=== PATIENT | male | born 1980 | race Caucasian/White ===

== ENCOUNTER 2023-02-27 18:17 | Emergency (ER) | payer SELFPAY ==
[~2023-02-27] VITALS: Ht 170.2 cm; Wt 68.0 kg
[2023-02-27 18:39] VITALS: BP 135/87
--- NOTE | 2023-02-27 19:00 | ER.PDOC ---
General Chief Complaint: Extremities Stated Complaint: POSSIBLE RIGHT FRACTURE/BROKEN ANKLE Time seen by MD: 18:54 Source: patient, family Exam Limitations: no limitations History of Present Illness Initial Comments 42 yo M had horse-related injury, rolling with some of the horse's weight on his R lower leg at least briefly - and has pain principally in the R lateral malleolus area and its environs. Injury occurred Thursday, has attempted to self- treat with air cast/splint but continuing weight bearing. Pain and swelling have persisted. Onset: last week Recent Injury: Yes Where: other (riding horse) Severity: moderate Exacerbated By: walking movement Relieved By: rest Allergies: Coded Allergies: Penicillins (Verified Allergy, Unknown, Rash, 02/27/23) Past Medical History Medical History: no pertinent history Surgical History: no surgical history Family History Significant Family History: no pertinent family hx Social History Smoking: cigarettes Alcohol Use: occassionally Drug Use: none Reviewed Nursing Reviewed: Vital Signs, Abn. Noted, Nursing Assessment Review of Systems Constitutional: no symptoms reported EENTM: no symptoms reported Respiratory: no symptoms reported Cardiovascular: no symptoms reported Gastrointestinal: no symptoms reported Genitourinary: no symptoms reported Musculoskeletal: see HPI Skin: no symptoms reported Psychiatric/Neurological: no symptoms reported All Other Systems: Reviewed and Negative Physical Exam General Appearance: Alert, No Apparent Distress Lower Extremity: tenderness, swelling (R lower lateral malleolus and its environs, without overt deformity or distal NV compromise) Vascular: no vascular compromise Neuro/Psych: sensation nml, motor nml Skin: color nml Back/Neck: nml inspection EENT: eyes inspection nml (grossly wnl) Respiratory: breath sounds nml CVS: reg rate & rhythm Abdomen: non-tender (grossly benign) Results/Orders Results/Orders Orders - MINDI OTERO MD Xr Ankle 3v Rt (02/27/23 18:32) Crutch Train Nwb (02/27/23 19:09) Vital Signs Date Time Temp Pulse Resp B/P (MAP) Pulse Ox O2 Delivery O2 Flow Rate FiO2 02/27/23 18:39 97.9 101 16 135/87 (103) 96 Room Air* 0 21 02/27/23 18:39 97.9 101 16 96 02/27/23 18:39 97.9 101 16 Progress Progress Nondisplaced fracture on x-ray. Pt replaces his splint; we will give crutches. I have recommended OTC NSAIDS and followup with orthopedic surgery as soon as possible. EKG/XRAY/CT/US XRAY: ankle XRAY Comments: see report. nondisplaced fracture ER DEPART Departure Time of Disposition: 19:09 Disposition: 01 HOME / SELF CARE / HOMELESS Impression: Primary Impression: Nondisplaced fracture of distal end of right fibula Condition: Stable Patient Instructions: Ankle Fracture, Cast or Splint Care, Crutch Use Referrals: PCP,UNKNOWN (PCP) PRIMARY CARE PROVIDER KYLE WOODY MD Duration or Time Spent with Pa: 10 min MINDI OTERO MD February 27, 2023 19:00
--- NOTE | 2023-02-27 19:22 | DIREP ---
PROCEDURE:XRAY ANKLE MIN 3VWS-RT COMPARISON:None. INDICATIONS:RIGHT ANKLE INJURY FINDINGS: BONES:Oblique comminuted mildly displaced fracture of the distal fibula. This arises above the level of the talar dome JOINTS:Normal. SOFT TISSUES:Soft tissue swelling OTHER:No additional findings. CONCLUSION:Oblique comminuted mildly displaced fracture of the distal fibula. Dictated by: Jaime Chowdhury MD on 02/27/2023 at 07:18 PM
== END 2023-02-27 19:26 | disposition home or self-care (01) ==
LOC: ER 18:17
DX: S82.831A Other fracture of upper and lower end of right fibula, initial encounter for closed fracture (principal); F17.210 Nicotine dependence, cigarettes, uncomplicated; Z88.0 Allergy status to penicillin; X58.XXXA Exposure to other specified factors, initial encounter; Y93.89 Activity, other specified; Y92.89 Other specified places as the place of occurrence of the external cause; Y99.8 Other external cause status
CPT/HCPCS: 99283; 73610-RT

== ENCOUNTER 2023-04-28 19:57 | Emergency (ER) | payer SELFPAY ==
[~2023-04-28] VITALS: Ht 170.2 cm; Wt 68.0 kg
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
[2023-04-28] MEDS ORDERED: LIDOCAINE 1% VIAL ONE (20:57)
[2023-04-28] MEDS ORDERED: TRIPLE ANTIBIOTIC OINTMENT PKT TP ONE (20:57)
--- NOTE | 2023-04-28 21:22 | ER.PDOC ---
General Chief Complaint: Extremities Stated Complaint: LEFT ARM LAC Time seen by MD: 21:15 Source: patient Exam Limitations: no limitations History of Present Illness Initial Comments Left forearm laceration this evening. Occurred: just prior to arrival Where: home Severity: moderate Allergies: Coded Allergies: Penicillins (Verified Allergy, Unknown, Rash, 02/27/23) Past Medical History Medical History: no pertinent history Surgical History: no surgical history Social History Drug Use: none Review of Systems Constitutional: no symptoms reported EENTM: no symptoms reported Respiratory: no symptoms reported Cardiovascular: no symptoms reported Gastrointestinal: no symptoms reported Skin: see HPI All Other Systems: Reviewed and Negative Physical Exam General Appearance: Alert, No Apparent Distress Hand: nml inspection, non-tender Wrist: nml inspection, non-tender, nml ROM Forearm/Elbow: nml inspection, non-tender, nml ROM 1 - Lac 2 - Lac Neuro/Vasc/Tendon: sensation nml, motor nml, no vascular compromise, tendon function nml Skin: warm/dry Head/ENT: nml inspection, pharynx nml Neck/Back: nml inspection, non-tender Respiratory: chest non-tender, breath sounds nml CVS: heart sounds normal Abdomen: non-tender, no organomegaly ED LACERATION WOUND REPAIR # of Wounds/Lacerations Presen: 2 Wound Location & Length (Requi: Left forearm Wound Length (cm): 6 Wound cleaned: betadine Anesthesia type: local Anesthesia: 1% Lidocaine Volume Anesthetic (ccs): 10 Wound's Depth, Shape: linear Irrigated w/ Saline (ccs): 40 Wound Repaired With: cameron Suture Size/Type: 4:0, ethilon Suture Style: interupted Number of Sutures: 8 Sterile Dressing Applied?: Yes Results/Orders Results/Orders Orders - LOLIS STACY MD Lidocaine Hcl (Lidocaine 1% Vial) (04/28/23 20:57) Neomycin/Bacitracin/Polymyxinb (Triple A (04/28/23 20:57) Progress Progress Patient received a tetanus shot. ER DEPART Departure Time of Disposition: 21:21 Disposition: 01 HOME / SELF CARE / HOMELESS Impression: Primary Impression: Laceration of forearm, left Condition: Improved Referrals: PCP,UNKNOWN (PCP) PRIMARY CARE PROVIDER Additional Instructions: Keflex Tylenol Apply Neosporin daily Remove sutures in 7 days either PCP or ED Return to ED sooner if any concerns Duration or Time Spent with Pa: 10 min Problem Qualifiers Primary Impression: Laceration of forearm, left Encounter type: initial encounter Qualified Codes: S51.812A - Laceration without foreign body of left forearm, initial encounter LOLIS STACY MD Apr 28, 2023 21:22
[2023-04-28 21:25] VITALS: BP 137/71
[2023-04-28] MEDS ORDERED: BOOSTRIX IM ONE ×2 (21:29→21:30)
[2023-04-28 21:36] VITALS: BP 134/72
== END 2023-04-28 21:38 | disposition home or self-care (01) ==
LOC: EDBD 19:57 → ER 19:57
DX: S51.812A Laceration without foreign body of left forearm, initial encounter (principal); Z88.0 Allergy status to penicillin; X58.XXXA Exposure to other specified factors, initial encounter; Y93.89 Activity, other specified; Y92.89 Other specified places as the place of occurrence of the external cause; Y99.8 Other external cause status
CPT/HCPCS: 99283; 90471; 12002; 90715; J2001